=== PATIENT | male | born 1970 | race Caucasian/White ===

== ENCOUNTER → 2023-12-03 06:18 | Day surgery (SDC) | payer OTHER, SELFPAY | LOC: GI 06:18 | PROVIDERS: ATTENDING PHYSICIAN Internal Medicine | DX: Z12.11 Encounter for screening for malignant neoplasm of colon (principal); K64.8 Other hemorrhoids; K63.5 Polyp of colon | CPT/HCPCS: 45380; 88305 ==

== ENCOUNTER 2024-07-20 07:33 | Emergency (ER) | payer OTHER, SELFPAY ==
[2024-07-20] VITALS (29 sets, daily range): BP systolic 117–147; BP diastolic 64–94; BMI 24.5
--- NOTE | 2024-07-20 08:25 | ED.GENMED ---
History of Present Illness
General
Chief Complaint: Skin Problem
Source: patient and significant other
Time Seen by Provider: 07/20/24 07:49
History of Present Illness
History of Present Illness:
53-year-old male who presents with an abscess to the left side of the perirectal area. No fevers. 10 years ago he had 1 also that had to be drained. The patient reports that he has had smaller ones that seem to come and go. He was put on
antibiotics with no improvement.
Past History
Past History
ED Past Medical History: Other (Lumbar fusion, anxiety, depression, perirectal abscess)
ED Past Surgical History: Other (Lasik)
Social History
Tobacco: Non-smoker
Personal:
Living: with family
Employment: Employed
Phy Exam
Physical Exam
Physical Exam:
CONSTITUTIONAL Vital signs reviewed, Patient alert and oriented to person, place and time. Well-appearing
HEAD atraumatic, normocephalic.
EYES eyelids normal to inspection, Extraocular muscles intact, Conjunctiva normal, Sclera normal.
NECK normal range of motion, Trachea midline, no jugular venous distention.
RESP no respiratory distress
BACK No obvious deformities
Rectal exam ELLIOT shows no intrarectal extension. He does have a left perirectal abscess at the left gluteus medially with approximately 4 cm of induration by 3 cm with fluctuant center. Minor redness noted to the skin overlying the area of
induration.
UPPER EXTREMITY Gross Range of motion normal, gross motor strength normal
LOWER EXTREMITY Gross range of motion normal, Gross motor strength normal
NEURO Speech normal, No focal motor deficits include, Ira coma scale 15, Memory normal, Cranial Nerves intact to screening exam.
SKIN Skin warm, dry, and normal in color.
PSYCHIATRIC Patient oriented to person place and time, Normal affect.
Course
Orders/Labs/Results
Orders:
Orders
07/20/24 08:23
Etomidate [Amidate 20 mg] 20 mg .ROUTE .STK-MED ONE
07/20/24 08:40
Propofol [Diprivan] 20 ml .ROUTE .STK-MED
Vital Signs
Initial and Last Documented VS:
Initial Vital Signs
Temp Pulse Resp BP Pulse Ox
98.1 F 93 18 139/94 97
07/20/24 07:36 07/20/24 07:36 07/20/24 07:36 07/20/24 07:36 07/20/24 07:36
Last Documented Vital Signs
Temp Pulse Resp BP Pulse Ox
98.5 F 78 13 118/64 95
07/20/24 09:06 07/20/24 09:36 07/20/24 09:36 07/20/24 09:36 07/20/24 09:36
Procedures
Moderate Sedation
ASA Risk Score: Class I
Chart and allergies reviewed: Yes
Consent for anesthesia obtained: Yes
Time out completed (validating right patient & procedure): Yes
Moderate Sedation Start Time(when first medication is given): 08:37
History of difficult intubation: No
Airway free of obstruction: Yes
Patient has a gag reflex: Yes
Patient is able to open mouth: Yes
Patient has no dentures: Yes
Patient has no loose teeth: Yes
Medication administered by Provider during Moderate Sedation: IV Propofol (mg) (165) and Other (10mg Etomidate)
Total dose administered: 165
Time drug administered: 08:37
Moderate Sedation Procedure End Time: 08:55
Incision/Drainage/Joint Aspiration
Left Buttock:
Anethesia: 1% Lidocaine with Epi
Preparation: cleaned with Betadine
Type of procedure: incise and drain
Nature of site: abscess
Description of abscess: greater than 3cm, complex, involved incision and drainage
Loculations broken up: Yes
How much fluid was obtained?: large amount
Fluid description: purulent
Treatment: left open for drainage and packed with gauze (Packing placed)
MDM/Problems Addressed
MDM/Problems Addressed:
Perirectal abscess
*Pulse Oximetry
Patient hypoxic: no
*Mortar Carrier Interpretation
Rate: normal
Interpretation: normal
Rhythm: sinus
*Critical Care Note
Total Time (30-74mins, 75-104mins- exclusive of procedures): Not Applicable
Data Reviewed
Source: patient and spouse (Spouse states that sometimes he gets small ones that seem to be go away on their own)
Prescriptions/Medications Considered But Not Given:
Antibiotics but already on Bactrim
Patient Management
Escalation/DeEscalation of care consider admission/obs:
Patient tolerated sedation much better than local alone. Significant amount of pus from the wound. Irrigated and packing placed. Continue antibiotics. Recommend warm soaks
Update Note
Update Note:
Awake and alert. Advised colorectal follow-up
ED Attending Note
-
Portions of this chart may have been created with voice recognition software.� Occasional wrong word or��sound alike� substitutions may have occurred due to the inherent limitations of voice recognition software.
Discharge Plan
Departure
Patient Disposition: Home (Routine Discharge)
Date of Disposition: 07/20/24
Time of Disposition: 09:48
Patient with high blood pressure during this ER visit?: No
Discharge Problem:
Perirectal abscess
Instructions: Wound Care (DC), Anal abscess and fistula - Discharge instructions
Prescriptions:
New
hydrocodone-acetaminophen 5-325 mg tablet
2 tab PO Q6H PRN (Reason: Pain) Qty: 12 0RF
No Action
oxycodone-acetaminophen [Percocet] 1 EACH tablet
1 ea PO .Q6HRS Qty: 10 0RF
ciprofloxacin HCl [Ciloxan] 5 ML drops
1 drp OPHTHALMIC .Q4H WHILE AWAKE Qty: 5 0RF
hydrocodone-acetaminophen 5 MG/500 MG tablet
1 tab PO .Q4-6HPRN PRN (Reason: PAIN) Qty: 14 0RF
amoxicillin-pot clavulanate 1 TABLET tablet
1 tab PO Q12 Qty: 20 0RF
Referrals:
Rancho Dobbs MD [Family Provider] -
Donavan Jernigan MD [Active] -
Activity Restrictions/Additional Instructions:
Continue antibiotics. Please use warm soaks as discussed. Please see your doctor or colorectal surgery in the next 48 hours for reassessment and packing removal. Occasionally large cavities like yours can require repeat packing. Return for
fevers, worsening pain or any other concerns.
Interventions
Interventions:
*Risk Screen - Suicide Last Done: 07/20/24 07:36
*General Assessment Last Done: 07/20/24 07:36
*Neglect/Abuse Screening Last Done: 07/20/24 07:36
Discharge Date and Time
Print Language: MAURITANIAN
== END 2024-07-20 10:29 | disposition home or self-care (01) ==
LOC: EMR 07:33
PROVIDERS: EMERGENCY PHYSICIAN Emergency Medicine; FAMILY PHYSICIAN Internal Medicine
DX: K61.1 Rectal abscess (principal)
CPT/HCPCS: 46040; 99152; 99285

== ENCOUNTER 2024-11-20 06:02 | Day surgery (SDC) | payer OTHER, SELFPAY ==
[2024-10-21 08:10] VITALS: BMI 24.7
[2024-10-21 08:27] LABS: Hematocrit 46.3 % (39.0-52.0); Hemoglobin 15.8 g/dL (13.0-18.0); Mean Corp Hgb Conc. 34.1 g/dL (33.0-37.0); Mean Corpuscular Volume 97.5 fL (80.0-94.0); Nucleated Red Blood Cells % 0 % (-); Platelet Count 265 10^3/uL (130-400); Red Cell Dist. Width 12.1 % (11.5-14.5)
[2024-10-21 08:43] LABS: ALT (SGPT) 26 U/L (0-50); AST (SGOT) 26 U/L (17-59); Albumin 4.8 g/dl (3.5-5.0); Alkaline Phosphatase 40 U/L (38-126); Blood Urea Nitrogen 16 mg/dl (9-20); Calcium 9.4 mg/dl (8.4-10.2); Carbon Dioxide 26 mmol/L (22-30); Chloride 107 mmol/L (98-107); Estimated Creatinine Clearance 107 ml/min; Glucose 102 mg/dl (70-99); Magnesium 2.4 mg/dl (1.6-2.3); Potassium 4.5 mmol/L (3.5-5.1); Sodium 139 mmol/L (135-145); Total Protein 7.8 g/dl (6.3-8.2); eGFR > 60.00
--- NOTE | 2024-10-22 14:45 | SLEEP.APNEA ---
Sleep Apnea Order
-
Patient screened as High Risk for Sleep Apnea on Stop Bang Questionnaire. Patient referred to [facility] for Pre-Study.

Name: MUSHTAQ BLANCO
: 1970
Home Phone: Use [email or web address] instead
Cell Phone: [f_Reg Other Phone]

Address: [address] [place] [address]
City: [place]
State: [place]
Zip: [f_[facility] Zip]
Family Physician: Rnacho Dobbs
Height 5 ft 8.5 in
Actual Weight 74.7 kg
Body Mass Index (BMI) 24.7
Ordering Provider: Rowan Chanel
[2024-11-20] VITALS (16 sets, daily range): BP systolic 83–127; BP diastolic 53–90
--- NOTE | 2024-11-20 11:16 | ITS.CL.ABL ---
Course Developer - Ablation
Ablation
Procedure Report:
ELECTROPHYSIOLOGIC STUDY AND POSSIBLE ABLATION
DATE: November 12, 2024
Primary Care Provider: Dr. Rancho Dobbs
INDICATION:
Symptomatic Atrial Fibrillation.
Paroxysmal
HISTORY: See H and P.
Symptomatic AF, poorly controlled with attempted medical therapy
HAS-BLED: 0
CHADSVASc: 0
PRESENTING RHYTHM: SR
HISTORY: See H and P.
Symptomatic AF, poorly controlled with attempted medical therapy.
ANTIARRHYTHMIC DRUG: Flecainide 50 mg twice daily, diltiazem ER 120 mg daily
'TIME-OUT': called and confirmed.
SEDATION/ANESTHESIA: provided via the anesthesia department using general anesthesia.
PROCEDURE:
Ultrasound Guidance with real-time visualization of needle insertion and vessel patency performed by ia for femoral venous Vascular Access.
Under real-time US guidance, the needle was advanced with negative pressure into the vein. The needle was seen entering the vessel lumen with a good return of dark red flow, the syringe was removed, non-pulsatile, dark red blood low was noted and
the wire was passed without difficulty, then the needle was removed. US confirmed the wire was in the vein, not going into an artery,
Images were taken and saved for the patient's permanent record. Imaging findings typical femoral venous anatomy. Direct visualization of needle puncture into the femoral vein was observed and recorded.
A decapolar CS catheter was placed within the CS for mapping and pacing.
The intracardiac ultrasound catheter was positioned in the RA for continuous intracardiac ultrasound imaging.
Heparin bolus and infusion to target ACT at 300 -350 seconds was administered. Transseptal puncture was performed. This entailed advancing a sheath with dilator into the superior vena cava and withdrawing both (monitoring intracardiac ultrasound,
fluoroscopy and tip pressure) with the tip oriented toward the atrial septum. The fossa ovalis was engaged (indicated by sudden displacement of the sheath tip as well as tenting of the fossa seen on intracardiac ultrasound).
[employer] transseptal system was used. Left atrial catheter position was confirmed by echocardiographic imaging, pressure monitoring (LA mean pressure 8 mm Hg) and fluoroscopy. The sheath was advanced over the dilator and positioned in the left
atrium.
The multipolar mapping catheter was initially positioned through the transseptal sheath for high density mapping.
Geometry and voltage mapping was performed using the [employer] multipolar grid catheter. Ensite-X was utilized for three-dimensional electroanatomical mapping.
A 3-D map was created using Ensite-X in Voxel mode. A 3-D reconstructed CT image was compared to the 3-D Navex map to assist in anatomic evaluation, mapping and ablation.
The [employer] Pulse Select PFA catheter and system was used for cardiac ablation. Catheter positioning was guided and confirmed using both I.C.E. and fluoroscopy.
PV isolation approach was used to electrically isolate each PV ostia (LSPV, LIPV, RSPV, RIPV).
Post ablation mapping additionally finds that all PVPs were eliminated at each vein demonstrating entrance block. Also pacing around the the circumference of the ostia was performed at 10 ma and 2.0 msec output to assess for exit block. This
demonstrated electrical isolation at each of the pulmonary vein ostia (LSPV, LIPV, RSPV, RIPV).
Programmed electrostimulation including burst atrial pacing as well as delivery of atrial decremental extrastimuli down to atrial ERP failed to induce any sustained arrhythmias.
I.C.E. :
Pre-Ablation Post-Ablation
LVEF: 55 % 55 %
WMA: none none
Pericardial effusion: none none
LA Pressure (mmHg) 8
COMPLICATIONS:
None
SUMMARY:
- Mapping and ablation to isolate the PVs
- 3-D Electroanatomical Mapping
- Intracardiac Ultrasound
- Ultrasound guidance for vascular access
- Follow up will be arranged as per PulseSelect PFA PAS Trial protocol
Post ablation, I discussed today's findings and results with the patient's , Ashwini
RECOMMENDATIONS:
- Observe in monitored bed.
- Maintain oral anticoagulation.
- Discontinue flecainide and diltiazem
Copy to: Dr. Rancho Dobbs
[2024-11-20] MEDS: PERCOCET 5/325 1 TABLET PO (14:06)
--- NOTE | 2024-11-20 15:05 | W.PN.UPDATE ---
Update Note
Progress Note Update
54 yo WM s/p PVI (same day). He denies cp, sob, too diet, voiding, R fem site c/d/i no HT, EKG SR. He will start Eliquis tonight (new med). He will stop flecainide and diltiazem. Activity restrictions reviewed. He will f/u [facility] in 3 mo. He is for d/c
home after 3pm.
== END 2024-11-20 15:14 | disposition home or self-care (01) ==
LOC: CATH 06:02
PROVIDERS: ATTENDING PHYSICIAN Internal Medicine Cardiovascular Disease; FAMILY PHYSICIAN Internal Medicine
DX: I48.0 Paroxysmal atrial fibrillation (principal); Z00.6 Encounter for examination for normal comparison and control in clinical research program; R55 Syncope and collapse; F41.9 Anxiety disorder, unspecified; N40.0 Benign prostatic hyperplasia without lower urinary tract symptoms; Z79.899 Other long term (current) drug therapy
CPT/HCPCS: C1769; C1892; C1894; C1732; C1733; C1766; 36415; 75572; 80053; 83735; 85025; 85347; 86850; 86900; 86901; 93005; 93656; 93657; Q9967

== ENCOUNTER → 2024-11-25 13:23 | Outpatient (REF) | payer OTHER, SELFPAY | LOC: DHSLP 13:23 | PROVIDERS: ATTENDING PHYSICIAN Internal Medicine Cardiovascular Disease; FAMILY PHYSICIAN Internal Medicine | DX: G47.30 Sleep apnea, unspecified (principal); R06.83 Snoring | CPT/HCPCS: 95800 ==